=== PATIENT | male | born 1960 | race African-American/Black ===

== ENCOUNTER 2018-10-14 19:18 | Inpatient (IN) | payer MEDICARE, OTHER ==
--- NOTE | 2018-10-14 20:07 | ED Physician Chart ---
ED Chief Complaint/HPI - Patient Information Date Seen:: 10/14/18 Time Seen:: 19:30 Chief Complaint:: increased correction aggitation History of Present Illness:: several days Allergies:: Allergies Allergy/AdvReac Type Severity Reaction Status Date / Time No Known Allergies Allergy Verified 10/14/18 20:00 Vitals:: Vital Signs - 8 hr 10/14/18 19:20 Temp 98.4 F HR 78 RR 16 BP 138/88 O2 Sat % 99 Historian:: Medical Records Review:: Nurse's Note Reviewed, Transfer documents Reviewed, Patient unable to respond ED Review of Systems - Review of Systems General/Constitutional: No fever ED Past Medical History - Past Medical History Past Medical History: HTN, Other (parkinsons htn) Family Medical History - Family Member Mother History Unknown: Yes ED Physical Exam - Physical Examination General/Constitutional: Awake, No distress, Non-toxic appearing Head: Atraumatic Eyes: Lids, conjuctiva normal Skin: No ecchymosis ENMT: External ears, nose nl Neck: Nontender Respiratory: Nl effort/Exclusion Cardio Vascular: RRR, NL S1 S2 GI: No tenderness/rebounding/guarding Extremities: No tenderness or effusion Neuro/Psych: Normal motor strength (tremors 4/5) Misc: No paraspinal tenderness ED Assessment - Assessment General Assessment: aggitation acute with potential psychosocial overtones ED Septic Shock - . Is Septic Shock (SBP<90, OR Lactate>4 mmol\L) present?: No - <6hrs of presentation: Vital Signs: Vital Signs - 8 hr 10/14/18 19:20 Temp 98.4 F HR 78 RR 16 BP 138/88 O2 Sat % 99 ED Reassessment (Disposition) - Reassessment Reassessment Condition:: Unchanged - Patient Disposition Discharge/Transfer:: Acute Care w/in this hosp (need for psych eval with change or mod medicine)
[2018-10-14 20:34] LABS: % BASOPHILS 3.8 % (0.0-2.0); % EOSINOPHILS 0.6 % (0.0-5.0); % LYMPHOCYTES 12.7 % (20.0-50.0); % MONOCYTES 4.3 % (2.0-10.0); % NEUTROPHILS 78.6 % (40.0-80.0); BASOPHILE ABSOLUTE 0.2 Th/cumm (0-0.2); HEMATOCRIT 37.3 % (41.0-60); HEMOGLOBIN 12.8 gm/dL (12-16); LYMPHOCYTE ABSOLUTE 0.8 Th/cmm (1.5-3.0); MEAN CELL VOLUME 89.8 fl (80-99); MEAN CORPUSCULAR HEMOGLOBIN 30.8 pg (26.0-30.0); MEAN CORPUSCULAR HGB CONC 34.3 pg (28.0-36.0); MONOCYTE ABSOLUTE 0.3 Th/cmm (0.3-1.0); NEUTROPHILE ABSOLUTE 4.9 Th/cmm (1.8-8.0); PLATELET COUNT 128 Th/cmm (150-400); RED BLOOD COUNT 4.15 Mil/cmm (4.30-5.70); RED CELL DISTRIBUTION WIDTH 14.2 % (11.5-20.0); WHITE BLOOD COUNT 6.2 Th/cmm (4.8-10.8)
[2018-10-14 20:40] LABS: ALB/GLOB RATIO 1.3 (1.0-1.8); ALKALINE PHOSPHATASE 57 U/L (34-104); ANION GAP 11.7 (7.0-16.0); BUN - UREA NITROGEN 16 mg/dL (7-25); CALCIUM SERUM 9.2 mg/dL (8.6-10.3); CARBON DIOXIDE 24.7 mEq/L (21.0-31.0); CHLORIDE 102 mEq/L (98-107); CREATININE - SERUM 1.1 mg/dL (0.7-1.3); GFR AFRICAN-AMERICAN > 60.0 ml/min (>90); GFR NON AFRICAN-AMERICAN > 60.0 ml/min; GLUCOSE 76 mg/dL (70-105); POTASSIUM SERUM 4.4 mEq/L (3.5-5.1); SGOT 17 U/L (13-39); SGPT/ALT < 3 U/L (7-52); SODIUM SERUM 134 mEq/L (136-145); TOTAL PROTEIN,SERUM 7.1 gm/dL (6.0-8.3)
[2018-10-14 22:31] LABS: BILIRUBIN,TOTAL 1.1 mg/dL (0.3-1.0)
[2018-10-14 22:38] VITALS: BP 130/79
[2018-10-14] MEDS ORDERED: Magnesium Hydroxide (MOM) 30 mL UDC PO PRN (22:44)
[2018-10-14] MEDS ORDERED: Maalox 30 mL Cup PO PRN (22:44)
[2018-10-14] MEDS ORDERED: LEVODOPA PO SCH (23:00)
[2018-10-14] MEDS ORDERED: CARBIDOPA PO SCH (23:00)
[2018-10-15 07:50] LABS: CHOLESTEROL 95 mg/dL (<200); HDL -HIGH DENSITY LIPOPROTEIN 49 mg/dL (23-92); TRIGLYCERIDES 16 mg/dL (<150)
--- NOTE | 2018-10-15 11:10 | Psychiatric Evaluation ---
DATE OF SERVICE: 10/14/2018 IDENTIFYING INFORMATION: The patient is a 58-year-old black male. HISTORY OF PRESENT ILLNESS: The patient was sent because of agitation and psychosis. The patient was a very poor historian. He looked disheveled. He was dressed in shorts that were teared Unable to participate in meaningful conversation or make safe plan for self-care. He has been very agitated, irritable, unable to make safe plan for self-care. PAST PSYCHIATRIC HISTORY: Psychosis. No more information is obtainable from the patient. According to the ER notes, [facility] because of increasing agitation. ALLERGIES: The patient has no known drug allergy. MEDICATIONS: The patient has been on amantadine, Sinemet, lisinopril, Naprosyn, temazepam and he should be also on Restoril. FAMILY AND SOCIAL HISTORY: Unobtainable. The patient lives in a nursing facility. Unable to obtain information from the patient. MENTAL STATUS EXAMINATION: The patient is appropriately dressed, not very well groomed, who is dressed in shorts or tiered unable to make safe plan for self-care or participate in meaningful conversation. He is unpredictable, impulsive. He is demented. The patient is unable to tell me the date, where he is, why he is here. When asked about her age, he was whispering mumbling, unable to understand, unpredictable, impulsive, needing redirection, milieu safe plan for self-care, gravely disabled. IMPRESSION: Dementia with behavior disturbances. History of psychosis. MEDICAL DIAGNOSES: As per medical doctor. Plan will be started on Seroquel 25 mg twice a day. We will do group therapy daily at bedtime. We will do group therapy, milieu therapy, and individual therapy. ESTIMATED LENGTH OF STAY: 3-7 days. DISCHARGE CRITERIA: Decreasing psychosis, agitation after discharge, outpatient treatment. JOB# [id number] [facility]
--- NOTE | 2018-10-15 12:25 | History & Physical ---
ADMIT DATE: 10/15/2018 CHIEF COMPLAINT: Agitation. HISTORY OF PRESENT ILLNESS: A 58-year-old male who is a [facility] who has been admitted to the Geropsych Unit due to increase of agitation. PAST MEDICAL HISTORY: Hypertension, Parkinson's. PAST SURGICAL HISTORY: Unknown. ALLERGIES: No drug allergies. HOME MEDICATIONS: See medication list. REVIEW OF SYSTEMS: Unable to obtain, the patient is very confused. PHYSICAL EXAMINATION: GENERAL: The patient appears older than stated age. No apparent distress. VITAL SIGNS: Temperature 98.4, heart rate 70, blood pressure 130/80, respirations 16, O2 of 99%. HEENT: Head; normocephalic, atraumatic. NECK: Supple. No mass. LUNGS: Clear bilaterally. HEART: Regular rate and rhythm. ABDOMEN: Soft, nontender. LABORATORY DATA: WBC 6.2, H and H 12.8 and 37.3, platelet of 120. Sodium 134, potassium 4.4, chloride 102, BUN 16 and creatinine 1.1. ASSESSMENT: Hypertension, Parkinson's, agitation. PLAN: We will continue the patient's home medications. Fall precautions will be initiated. We will continue to monitor this patient. JOB# [id number]
[2018-10-16 06:07] LABS: A1C 5.3 % (4.8-5.6)
[2018-10-16] MEDS: Eucerin Cream 16 oz Jar TP SCH ×2 (08:45→17:37)
--- NOTE | 2018-10-16 11:48 | Internal Medicine Prog Note ---
Internal Medicine Subjective - Subjective Service Date: 10/16/18 Patient seen and examined:: with staff Patient is:: awake, verbal, agitated, confused Patient Complaints of:: other (Irritable, Agitated.) Per staff patient has:: no adverse event, no episodes of fall Internal Medicine Objective - Results Result Diagrams: 10/14/18 20:15 10/14/18 20:15 Recent Labs: Laboratory Last Values WBC 6.2 Th/cmm (4.8-10.8) 10/14/18 20:15 RBC 4.15 Mil/cmm (4.30-5.70) L 10/14/18 20:15 Hgb 12.8 gm/dL (12-16) 10/14/18 20:15 Hct 37.3 % (41.0-60) L 10/14/18 20:15 MCV 89.8 fl (80-99) 10/14/18 20:15 MCH 30.8 pg (26.0-30.0) H 10/14/18 20:15 MCHC Differential 34.3 pg (28.0-36.0) 10/14/18 20:15 RDW 14.2 % (11.5-20.0) 10/14/18 20:15 Plt Count 128 Th/cmm (150-400) L 10/14/18 20:15 MPV 10.5 fl 10/14/18 20:15 Neutrophils % 78.6 % (40.0-80.0) 10/14/18 20:15 Lymphocytes % 12.7 % (20.0-50.0) L 10/14/18 20:15 Monocytes % 4.3 % (2.0-10.0) 10/14/18 20:15 Eosinophils % 0.6 % (0.0-5.0) 10/14/18 20:15 Basophils % 3.8 % (0.0-2.0) H 10/14/18 20:15 Sodium 134 mEq/L (136-145) L 10/14/18 20:15 Potassium 4.4 mEq/L (3.5-5.1) 10/14/18 20:15 Chloride 102 mEq/L (98-107) 10/14/18 20:15 Carbon Dioxide 24.7 mEq/L (21.0-31.0) 10/14/18 20:15 Anion Gap 11.7 (7.0-16.0) 10/14/18 20:15 BUN 16 mg/dL (7-25) 10/14/18 20:15 Creatinine 1.1 mg/dL (0.7-1.3) 10/14/18 20:15 Est GFR ( Amer) > 60.0 ml/min (>90) 10/14/18 20:15 Est GFR (Non-Af Amer) > 60.0 ml/min 10/14/18 20:15 BUN/Creatinine Ratio 14.5 10/14/18 20:15 Glucose 76 mg/dL (70-105) 10/14/18 20:15 Calcium 9.2 mg/dL (8.6-10.3) 10/14/18 20:15 Total Bilirubin 1.1 mg/dL (0.3-1.0) H 10/14/18 20:15 AST 17 U/L (13-39) 10/14/18 20:15 ALT < 3 U/L (7-52) L 10/14/18 20:15 Alkaline Phosphatase 57 U/L (34-104) 10/14/18 20:15 Total Protein 7.1 gm/dL (6.0-8.3) 10/14/18 20:15 Albumin 4.0 gm/dL (4.2-5.5) L 10/14/18 20:15 Globulin 3.1 gm/dL 10/14/18 20:15 Albumin/Globulin Ratio 1.3 (1.0-1.8) 10/14/18 20:15 Triglycerides 16 mg/dL (<150) 10/14/18 20:15 Cholesterol 95 mg/dL (<200) 10/14/18 20:15 LDL Cholesterol Direct 40 mg/dL (75-193) L 10/14/18 20:15 HDL Cholesterol 49 mg/dL (23-92) 10/14/18 20:15 - Physical Exam Vitals and I&O: Vital Signs Temp 98.2 F 10/16/18 05:53 Pulse 86 10/16/18 05:53 Resp 19 10/16/18 05:53 BP 100/58 10/16/18 05:53 Pulse Ox 97 10/16/18 05:53 Intake & Output 0910/16/18 10/16/18 18:59 06:59 18:59 Intake Total 1350 240 Balance 1350 240 Intake: Oral 1350 240 Other: # Voids 2 # Bowel Movements 0 Active Medications: Current Medications Acetaminophen (Tylenol) 650 mg PO Q4HR PRN PRN Reason: Mild Pain / Temp above 100 Stop: 12/13/18 22:43 Al Hydrox/Mg Hydrox/Simethicone (Maalox) 30 ml PO Q4HR PRN PRN Reason: GI DISTRESS Stop: 12/13/18 22:43 Amantadine HCl (Symmetrel) 100 mg PO BID [facility] Stop: 12/14/18 08:59 Last Admin: 10/16/18 08:46 Dose: 100 mg Carbidopa/Levodopa (Sinemet 25 Mg-250 Mg) 2 tab PO QID [facility] Stop: 12/14/18 08:59 Last Admin: 10/16/18 08:45 Dose: 2 tab Lisinopril (Zestril) 20 mg PO DAILY [facility] Stop: 12/14/18 08:59 Last Admin: 10/16/18 08:35 Dose: Not Given Lorazepam (Ativan) 0.5 mg PO Q4HR PRN; Protocol PRN Reason: Anxiety Stop: 11/13/18 22:43 Last Admin: 10/15/18 04:48 Dose: 0.5 mg Magnesium Hydroxide (Milk Of Magnesia) 30 ml PO HS PRN PRN Reason: Constipation Multi-Ingredient Cream (Eucerin Cream) 1 appl TP BID [facility] Stop: 12/14/18 16:59 Last Admin: 10/16/18 08:45 Dose: 1 appl Naproxen (Naprosyn) 500 mg PO BID [facility] Stop: 12/14/18 08:59 Last Admin: 10/16/18 08:46 Dose: 500 mg Quetiapine Fumarate (Seroquel) 25 mg PO DAILY [facility]; Protocol Stop: 12/15/18 08:59 Last Admin: 10/16/18 08:46 Dose: 25 mg Temazepam (Restoril) 15 mg PO HS [facility]; Protocol Stop: 12/14/18 20:59 Last Admin: 10/15/18 21:12 Dose: 15 mg Physical Exam: Patient is aggressive and irritable. General: other (Agitated.) HEENT: NC/AT Neck: Supple, No JVD Lungs: CTAB Cardiovascular: RRR, Normal S1 Abdomen: soft, non-tender Extremities: clear Neurological: alert Internal Medicine Assmt/Plan - Assessment Assessment: Increased Agitated. Parkinson's disease. Hypertension. - Plan Plan: Continuation of care. Monitor Labs. Continue present meds as directed. Monitor vitals, continue B/P meds as directed. Monitor Diet/Nutritional support. Psych management per Psych. Pain Management. Physical therapy/Occupational therapy prn. Safety precaution. Supportive care. Fall precaution, frequent nursing rounds, and as needed restraints to prevent fall. Continue collaborating with consulting specialists, case management and nursing team. Will Monitor patient and continue present care management. Nutritional Asmnt/Malnutr-PDOC - Dietary Evaluation Malnutrition Findings (Please click <Entered> for more info): see orders.
--- NOTE | 2018-10-16 20:11 | Progress Notes ---
DATE: 10/16/[address] Kennedy. Case was discussed with staff of the patient, reviewed records. The patient today was able to get more information. He was alert. He was whispering. He knew this is October, maybe the or the 2018. He did not know where he is. He was unable to care. Does not know why he is in this facility. He continues to be unpredictable, impulsive, psychotic, unable to make safe plan for self-care. The patient also with history of hypertension, Parkinson's disease. He has no known drug allergies. He tolerated the Seroquel with no side effects, no sedation, no nausea, no extrapyramidal symptoms. I chose Seroquel simply because of his Parkinson's that has the lowest tendency to "Parkinson's" after Clozaril; however, I felt Clozaril is too much to hit from the first trial, I am not sure if he was on it before. The patient's lab work showed that he has low red cells, but normal hemoglobin. He has a low platelet count, low lymphocyte, high basophil. Chemistry panel with low sodium, high total bilirubin, and low albumin. Lipid profile with low LDL cholesterol. The rest within normal range. I will be deferring this to the medical doctor. We will continue outpatient group therapy, milieu therapy, adjust medication as needed. JOB# [id number]
[2018-10-17] MEDS: Eucerin Cream 16 oz Jar TP SCH ×2 (08:15→18:01)
--- NOTE | 2018-10-17 20:44 | Progress Notes ---
DATE: 10/17/2018 SUBJECTIVE: The patient was seen in his room. The patient is awake, alert, appears to be guarded, disheveled, easily gets frustrated with poor impulse control. Otherwise, the patient appears to be in no distress. OBJECTIVE: VITAL SIGNS: Temperature 96.8, heart rate 68, respiration 18, blood pressure 117/80, 97% on room air. HEENT: Head is atraumatic and normocephalic. Eyes: Bilateral conjunctivae are clear. Bilateral pupils are equally round and reactive. NECK: Supple. No JVD. CARDIOVASCULAR: S1 and S2, without murmur. PULMONARY: Clear to auscultation. GASTROINTESTINAL: Soft and nontender without guarding. Positive bowel sounds. MUSCULOSKELETAL: No clubbing. No cyanosis noted. ASSESSMENT: 1. Dementia. 2. History of psychosis. 3. Hypertension. 4. Parkinson's. PLAN: We will keep the patient in inpatient Psychiatric Unit. We will follow up with a psychiatrist to monitor the patient's condition and behavior. Treatment plans were discussed with the patient's nurse. Treatment plans were discussed with Dr. Thomas. JOB# [id number]
--- NOTE | 2018-10-17 20:48 | Progress Notes ---
DATE: 10/17/2018 Case was discussed with staff of the patient, reviewed records. The patient continues to have poor insight. He is staying in bed, in general, he is more oriented. He is not acting out. He seems to have shown progress. No side effects with the medication, no sedation, no nausea, no extrapyramidal symptoms. Continues to have episodes of agitation, irritability, and needing redirection. We will continue to work with the patient in group therapy, milieu therapy, and adjust medication as needed. JOB# [id number]
[2018-10-18] MEDS: Eucerin Cream 16 oz Jar TP SCH ×2 (09:39→17:00)
--- NOTE | 2018-10-18 09:43 | Internal Medicine Prog Note ---
Internal Medicine Subjective - Subjective Patient is:: awake, verbal, agitated, confused Patient Complaints of:: other (Irritable, Agitated.) Per staff patient has:: no adverse event, no episodes of fall Internal Medicine Objective - Results Result Diagrams: 10/14/18 20:15 10/14/18 20:15 Recent Labs: Laboratory Last Values WBC 6.2 Th/cmm (4.8-10.8) 10/14/18 20:15 RBC 4.15 Mil/cmm (4.30-5.70) L 10/14/18 20:15 Hgb 12.8 gm/dL (12-16) 10/14/18 20:15 Hct 37.3 % (41.0-60) L 10/14/18 20:15 MCV 89.8 fl (80-99) 10/14/18 20:15 MCH 30.8 pg (26.0-30.0) H 10/14/18 20:15 MCHC Differential 34.3 pg (28.0-36.0) 10/14/18 20:15 RDW 14.2 % (11.5-20.0) 10/14/18 20:15 Plt Count 128 Th/cmm (150-400) L 10/14/18 20:15 MPV 10.5 fl 10/14/18 20:15 Neutrophils % 78.6 % (40.0-80.0) 10/14/18 20:15 Lymphocytes % 12.7 % (20.0-50.0) L 10/14/18 20:15 Monocytes % 4.3 % (2.0-10.0) 10/14/18 20:15 Eosinophils % 0.6 % (0.0-5.0) 10/14/18 20:15 Basophils % 3.8 % (0.0-2.0) H 10/14/18 20:15 Sodium 134 mEq/L (136-145) L 10/14/18 20:15 Potassium 4.4 mEq/L (3.5-5.1) 10/14/18 20:15 Chloride 102 mEq/L (98-107) 10/14/18 20:15 Carbon Dioxide 24.7 mEq/L (21.0-31.0) 10/14/18 20:15 Anion Gap 11.7 (7.0-16.0) 10/14/18 20:15 BUN 16 mg/dL (7-25) 10/14/18 20:15 Creatinine 1.1 mg/dL (0.7-1.3) 10/14/18 20:15 Est GFR ( Amer) > 60.0 ml/min (>90) 10/14/18 20:15 Est GFR (Non-Af Amer) > 60.0 ml/min 10/14/18 20:15 BUN/Creatinine Ratio 14.5 10/14/18 20:15 Glucose 76 mg/dL (70-105) 10/14/18 20:15 Calcium 9.2 mg/dL (8.6-10.3) 10/14/18 20:15 Total Bilirubin 1.1 mg/dL (0.3-1.0) H 10/14/18 20:15 AST 17 U/L (13-39) 10/14/18 20:15 ALT < 3 U/L (7-52) L 10/14/18 20:15 Alkaline Phosphatase 57 U/L (34-104) 10/14/18 20:15 Total Protein 7.1 gm/dL (6.0-8.3) 10/14/18 20:15 Albumin 4.0 gm/dL (4.2-5.5) L 10/14/18 20:15 Globulin 3.1 gm/dL 10/14/18 20:15 Albumin/Globulin Ratio 1.3 (1.0-1.8) 10/14/18 20:15 Triglycerides 16 mg/dL (<150) 10/14/18 20:15 Cholesterol 95 mg/dL (<200) 10/14/18 20:15 LDL Cholesterol Direct 40 mg/dL (75-193) L 10/14/18 20:15 HDL Cholesterol 49 mg/dL (23-92) 10/14/18 20:15 - Physical Exam Vitals and I&O: Vital Signs Temp 98.3 F 10/18/18 06:00 Pulse 83 10/18/18 06:00 Resp 20 10/18/18 06:00 BP 136/100 10/18/18 06:00 Pulse Ox 98 10/18/18 06:00 Intake & Output 10/17/18 10/18/18 10/18/18 18:59 06:59 18:59 Intake Total 2200 Balance 2200 Intake: Oral 2200 Other: # Voids 4 # Bowel Movements 1 Active Medications: Current Medications Acetaminophen (Tylenol) 650 mg PO Q4HR PRN PRN Reason: Mild Pain / Temp above 100 Stop: 12/13/18 22:43 Al Hydrox/Mg Hydrox/Simethicone (Maalox) 30 ml PO Q4HR PRN PRN Reason: GI DISTRESS Stop: 12/13/18 22:43 Amantadine HCl (Symmetrel) 100 mg PO BID [facility] Stop: 12/14/18 08:59 Last Admin: 10/18/18 09:39 Dose: 100 mg Carbidopa/Levodopa (Sinemet 25 Mg-250 Mg) 2 tab PO QID [facility] Stop: 12/14/18 08:59 Last Admin: 10/18/18 09:39 Dose: 2 tab Lisinopril (Zestril) 20 mg PO DAILY [facility] Stop: 12/14/18 08:59 Last Admin: 10/17/18 08:16 Dose: 20 mg Lorazepam (Ativan) 0.5 mg PO Q4HR PRN; Protocol PRN Reason: Anxiety Stop: 11/13/18 22:43 Last Admin: 10/15/18 04:48 Dose: 0.5 mg Magnesium Hydroxide (Milk Of Magnesia) 30 ml PO HS PRN PRN Reason: Constipation Multi-Ingredient Cream (Eucerin Cream) 1 appl TP BID [facility] Stop: 12/14/18 16:59 Last Admin: 10/18/18 09:39 Dose: 1 appl Naproxen (Naprosyn) 500 mg PO BID [facility] Stop: 12/14/18 08:59 Last Admin: 10/18/18 09:39 Dose: 500 mg Quetiapine Fumarate (Seroquel) 25 mg PO DAILY [facility]; Protocol Stop: 12/15/18 08:59 Last Admin: 10/18/18 09:40 Dose: 25 mg Temazepam (Restoril) 15 mg PO HS [facility]; Protocol Stop: 12/14/18 20:59 Last Admin: 10/17/18 21:02 Dose: 15 mg General: other (Agitated.) HEENT: NC/AT Neck: Supple, No JVD Lungs: CTAB Cardiovascular: RRR, Normal S1, Normal S2 Abdomen: soft, non-tender, non-distended Extremities: clear Neurological: alert Internal Medicine Assmt/Plan - Assessment Assessment: Agitation Hx of Psychosis Parkinson's Disease HTN - Plan Plan: Continue current treatment plan. Monitor Labs.Continue current medications Continue to monitor VS Monitor Diet/Nutritional support. Psych management per Psychiatry. Pain Management. Wound Care consult - pending - ordered yesterday PT/OT prn Safety precaution, Fall precaution, frequent nursing round. Supportive care. Continue collaborating with consulting specialists, case management and nursing team. Nutritional Asmnt/Malnutr-PDOC - Dietary Evaluation Malnutrition Findings (Please click <Entered> for more info): Nutritional Asmnt/Malnutrition Start: 10/16/18 14: 39 Text: Status: Complete Freq: Protocol: Document 10/16/18 14:39 SUSIE (Rec: 10/16/18 14:43 SUSIE [email or web address]) Nutritional Asmnt/Malnutrition Patient General Information Nutritional Screening Moderate Risk Consult Diagnosis Psychosis Pertinent Medical Hx/Surgical Hx HTN, Parkinsons disease Subjective Information IA/Consult: RT medial bicep burn wound Pt is a 58-year-old male from skilled nursing admitted on 10/14 c /o agitation. Per Meal/ Nutrition Activity Record, Pt PO intake 100% meals since admission. Per wound care note (10/15), wound on RT medical bicep, Scar tissues and dark discolored skin on LT upper back and bilateral lower extremity noted. Per RN [place], Pt ate 75-100% breakfast and lunch today. Added Avi BID to support wound healing. Provided 6 packs of Avi to RN. Pt was downgraded to low risk d/t tolerance to current diet order and meeting nutritional needs. Will continue to monitor on wound healing progress. HT: 61 WT: 167 LB (75.91 kg) BMI: 22.03 (Normal) GI: Soft BM: Not noted I/O: 1590/Not Noted Skin: WNL, Intact Wound: wound on RT medial bicep Sree: 20 Diet Order: NA2GM Estimated Energy Needs: ( Pressure Ulcers Stage III-IV Small/Undraining, CBW) 9721-4665 kcals (28-33 kcals/ kg) 91-114 g Pro (1.2-1.5 g/kg) 7775-3733 ml (30-40 ml/kg) Pt is eating 100% of meals Per Meal/Nutrition Activity Record. Dietary is currently providing an estimated 2617 kcals and 105 gm Pro to meet 100% kcal and 100% Pro needs. Current Diet Order/ Nutrition Support NA2GM Pertinent Medications Maalox (PRN), MOM (PRN) Pertinent Labs 10/14: Hgb/Hct 12.8/37.3, Na 134 , Alb 4.0 Nutritional Hx/Data Height 6 ft 1 in Height (Calculated Centimeters) 185.4 Current Weight (lbs) 167 lb Weight (Calculated Kilograms) 75.7 Weight (Calculated Grams) 17995.9 [place] Body Weight 79.9 kg % [place] Body Weight 95 Body Mass Index (BMI) 22.0 Weight Status Approriate GI Symptoms GI Symptoms None Last BM Not noted Skin Integrity/Comment: Skin: WNL, Intact Wound: wound on RT medial bicep Sree: 20 Current %PO Good (75-100%) Estimated Nutritional Goals BEE in Kcals: Using Current wt Calories/Kcals/Kg 28-33 Kcals Calculated 9999-3073 Protein: Using Current wt Protein g/k.2-1.5 Protein Calculated 91-114 Fluid: ml 9630-4862 ml (30-40 ml/kg) Nutritional Problem 1. Problem Problem Increased calories and protein needs Etiology r/t wound healing Signs/Symptoms: aeb wound on RT medial bicep Malnutrition Related to Morbid Obesity Malnutrition related to morbid obesity No Intervention/Recommendation Comments 1.Continue with NA2GM diet as ordered. 2.Added Avi BID to support wound healing (completed). Expected Outcomes/Goals Expected Outcomes/Goals 1.PO intake to continue to meet >75% of nutritional needs . 2.Monitor PO intake, wt, nutrition related labs, and skin integrity to trend WNL. 3.F/U as low risk in 7 days,
--- NOTE | 2018-10-18 22:56 | Progress Notes ---
DATE: 10/18/2018 SUBJECTIVE: Case was discussed with staff of the patient, reviewed records. The patient continues to isolate in bed, continues to be confused, unpredictable, impulsive, though he is less confused than he was when he first came in here. He looked a little bit better groomed. He continues to have episodes of agitation, irritability, and needing redirection. He tolerated the Seroquel with no side effects, no sedation, no nausea, and no extrapyramidal symptoms. We will continue to work with the patient in group therapy, milieu therapy, and adjust the medications as needed. JOB# [id number]
[2018-10-19] MEDS: Eucerin Cream 16 oz Jar TP SCH (08:57)
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
--- NOTE | 2018-10-20 04:58 | Progress Notes ---
DATE: 10/19/2018 SUBJECTIVE: The patient in the hospital, mostly isolative, confused, impulsive, unpredictable. Per Dr. Georges, the patient seems to be calmer. He is still pretty ruminative, states he is on hospice, continues to ask me to call the hospice over and over again. Ongoing concerns about agitation, acting out behaviors, ruminations, perseverative. Fair sleep, fair appetite, mostly keeps to himself whenever approached, asks for medication and hospice. ASSESSMENT: The patient remains symptomatic, ongoing confusional state. We will continue to monitor. It is unclear if he is on hospice or not. Difficult to follow his thought processes. JOB# [id number]
[2018-10-20] MEDS: Eucerin Cream 16 oz Jar TP SCH ×2 (10:00→17:34)
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
--- NOTE | 2018-10-20 23:59 | Progress Notes ---
DATE: 10/20/[address] Kennedy. Case was discussed with staff of the patient, reviewed records. The patient is reportedly a bit calmer. The patient is on hospice. Continues to and over again. He continues to have episodes of agitation, ruminating, and preservative. He sleeps well, eats well. He stays to himself, staying in the room, tolerated Seroquel with no side effects, no sedation, no nausea, or no extrapyramidal symptoms and still unclear if he is to be on hospice or not. We will continue outpatient group therapy, milieu therapy, and adjust medication as needed. JOB# [id number]
[2018-10-21] MEDS: Eucerin Cream 16 oz Jar TP SCH ×2 (08:05→16:35)
--- NOTE | 2018-10-21 13:16 | Progress Notes ---
DATE: Case was discussed with staff of the patient, reviewed records. The patient continues to be confused, unpredictable, impulsive with episodes of agitation and irritability rumination He is sleeping better, eating better. I will be increasing his Seroquel to 37.5 mg at bedtime. No side effects with the medication, no sedation, no nausea, no extrapyramidal symptoms. We will continue outpatient group therapy, milieu therapy, adjust medication as needed. JOB# [id number] [email or web address]
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
[2018-10-22] MEDS: Eucerin Cream 16 oz Jar TP SCH ×2 (09:26→17:53)
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
--- NOTE | 2018-10-22 15:20 | Progress Notes ---
DATE: 10/22/2018 Case was discussed with staff of the patient, reviewed records. The patient continues to be impulsive, unpredictable, confused, unable to make safe plan for self-care. He is only a bit calmer. He is able to carry on a conversation better, though he does not make sense sometimes. No side effects with the medication, no sedation, no nausea and no extrapyramidal symptoms. He tolerated increase in Seroquel yesterday. We will continue the patient in group therapy, milieu therapy, adjust medication as needed. JOB# [id number]
[2018-10-23] MEDS: Eucerin Cream 16 oz Jar TP SCH ×2 (12:45→16:26)
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
--- NOTE | 2018-10-23 22:50 | Progress Notes ---
DATE: 10/23/2018 Case was discussed with staff of the patient, reviewed records. The patient continues to be confused, continues to be unable to make reasonable conversation, though he is able to express himself a little bit better, continues to be unable to make safe plan for self-care. He is sleeping better and eating better. No side effects with the medication, no sedation, no nausea, no extrapyramidal symptoms. He is tolerating increase in Seroquel yesterday with no side effects. We will continue outpatient group therapy, milieu therapy, and adjust medications as needed. JOB# [id number]
[2018-10-24] MEDS: Eucerin Cream 16 oz Jar TP SCH ×2 (11:00→16:45)
--- NOTE | 2018-10-24 21:43 | Progress Notes ---
DATE: 10/24/2018 The patient is currently in the hospital, sent due to agitation, escalation of behaviors. The patient is pretty calm right now and states that he wants to go back to his board and care. Noted to be fairly impulsive, unpredictable, although calm and speaking with the nurses. He really does not know why he is here at all. Dr. Georges saw him yesterday and noted that he was presenting with some signs of confusion. Fair sleep, fair appetite, although he wakes up pretty early in the morning. Per nursing staff, some confusion noted. He does not know why he is in the hospital. He said he does not know the year; seems to be improving. We will continue to monitor. Per nursing staff, still with some episodes of being easily agitated and withdrawn. JOB# [id number]
--- NOTE | 2018-10-24 21:48 | Progress Notes ---
DATE: 10/24/2018 SUBJECTIVE: The patient was seen in his room. The patient is awake. The patient appears to be guarded, easily gets frustrated with impulsive behavior. Otherwise, the patient appears to be in no acute distress. OBJECTIVE: VITAL SIGNS: Temperature 97.9, heart rate 71, blood pressure 136/96, respirations 20, and 98% on room air. HEENT: Head is atraumatic and normocephalic. Eyes: Bilateral conjunctivae are clear. Bilateral pupils are equally round and reactive. NECK: Supple. No JVD. CARDIOVASCULAR: S1 and S2, without murmur. PULMONARY: Clear to auscultation. GASTROINTESTINAL: Soft and nontender without guarding. Positive bowel sounds. MUSCULOSKELETAL: No clubbing. No cyanosis noted. ASSESSMENT: 1. Dementia. 2. History of psychosis. 3. Parkinson's disease. 4. Hypertension. PLAN: We will continue to keep the patient inpatient at the [facility] and follow up with the psychiatrist to monitor the patient's condition and behavior. Put the patient on fall precaution. Treatment plans were discussed with the patient's nurse. Treatment plans were discussed with Dr. Thomas. JOB# [id number]
--- NOTE | 2018-10-25 08:08 | Progress Notes ---
DATE: 10/25/2018 SUBJECTIVE: The patient is seen to review, discussed with staff. The patient is poorly oriented, mostly withdrawn, right now depressed appearing. Apparently, his 6 years ago. Some confusion noted. Otherwise, this morning he is generally calm, fairly cooperative, seems to be more engaged, interactive, talking with others. No distress right now. The patient agitation, no aggressive behaviors, irritation. Medications were noted. ASSESSMENT: The patient seems to be showing some signs of improvement, generally calm, more cooperative, redirectable, noted depression. PLAN: We will continue to monitor. JOB# [id number]
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
[2018-10-25] MEDS: Eucerin Cream 16 oz Jar TP SCH ×2 (09:45→18:00)
[2018-10-26] MEDS: Eucerin Cream 16 oz Jar TP SCH ×2 (08:33→16:09)
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
[2018-10-27] MEDS: Eucerin Cream 16 oz Jar TP SCH ×2 (08:34→16:45)
--- NOTE | 2018-10-27 09:35 | Progress Notes ---
DATE: SUBJECTIVE: Chart reviewed and the patient interviewed. Also discussed the patient's condition with the staff and reviewed records and labs. The patient is still having episodes of agitation and irritability, but generally the patient is cooperative. The patient also is still suspicious and is still restless. He also still wants to be left alone most of the time and he is still anxious and is still confused. Otherwise, the patient is interacting minimally with others. Gait is steady and vital signs are stable and no abnormal labs. TREATMENT PLAN: Continue monitoring his behavior and his condition closely. The patient also continues to take Seroquel and we will increase the dose to 50 mg and we will give it to him at bedtime and we will continue to follow up. [facility]# [id number]
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
--- NOTE | 2018-10-27 20:06 | Progress Notes ---
DATE: ____ "bored." The patient is complaining of being bored, but he is less agitated. He also is more forgetful and seems to be confused at times. The patient also is slightly more cooperative with his treatment. He also is still suspicious and slightly paranoid. Otherwise, the patient is compliant with taking Seroquel ____, continue Seroquel 37.5 mg daily. Also continue to work on his poor impulse control. The patient is also saying that he wants to go to live with his sister in [place], but no information about her and rn case mgr is trying to get him into a rehab place. At the same time, we will continue close observation and we will continue to followup. JOB# [id number]
--- NOTE | 2018-10-28 07:55 | Progress Notes ---
DATE: SUBJECTIVE: Chart reviewed and the patient interviewed. Also discussed the patient's condition with the staff and reviewed records and labs. The patient continued to be severely depressed. The patient also is still anxious and is still in a depressed mood and he is still easily agitated. Also, it is still slightly easier to redirect him and no major behavioral issues at this time. OBJECTIVE: Gait is steady. Vital signs are stable. ASSESSMENT: The patient is still depressed and also he needs placement. TREATMENT PLAN: Continue current medications. Also, continue to work with insurance case manager in regard to placement issue and discharge plans. JOB# [id number]
[2018-10-28] MEDS: Eucerin Cream 16 oz Jar TP SCH ×2 (08:15→16:15)
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
[2018-10-29] MEDS: Eucerin Cream 16 oz Jar TP SCH ×2 (09:09→17:07)
--- NOTE | 2018-10-29 10:45 | Progress Notes ---
DATE: 10/29/2018 SUBJECTIVE: Chart reviewed and the patient interviewed. Also discussed the patient's condition with the staff and reviewed records and labs. The patient is still restless and anxious and is still in irritable and depressed mood. The patient also is still easily agitated and still needs lots of redirections. The patient also is at times yelling at staff. Otherwise, the patient is cooperative in regard to taking his medications and the patient continued to take Seroquel in a dose of 50 mg at bedtime with no side effects. ASSESSMENT: The patient is still irritable and is still agitated. TREATMENT PLAN: Continue monitoring his behavior and his condition closely. Also, continue adjusting psychotropic medications and followup. [facility]# [id number]
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
[2018-10-30] MEDS: Eucerin Cream 16 oz Jar TP SCH ×2 (08:52→17:26)
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
--- NOTE | 2018-10-30 20:36 | Progress Notes ---
DATE: SUBJECTIVE: Chart reviewed and the patient interviewed. Also discussed the patient's condition with the staff and reviewed records and labs. The patient still has episodes of anger and irritability, was yelling and screaming. The patient also is still able to verbalize his needs, but sometimes angry in inappropriate way. He also is still unsure about discharge plans and case specialist was not giving any information about his placement and discharge places. He still needs redirections and still needs close monitoring. Otherwise, the patient is compliant with taking Seroquel with no side effects of Seroquel. ASSESSMENT: The patient is still having episodes of anger and is still not clear as far as of discharge plans. TREATMENT PLAN: Continue Seroquel same dose. Continue adjusting medications and monitor behavior and work on discharge plans. JOB# [id number]
[2018-10-31] MEDS: Eucerin Cream 16 oz Jar TP SCH ×2 (08:29→16:46)
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
--- NOTE | 2018-11-01 00:26 | Progress Notes ---
DATE: SUBJECTIVE: Chart reviewed and the patient interviewed. Also discussed the patient's condition with the staff and reviewed records and labs. The patient is still anxious and has a lot of questions about medications and still concerned about medicine. The patient also still tends to isolate himself and is still depressed and withdrawn. He continues to take Seroquel in a dose of 50 mg every day with no side effects. He is still having episodes of yelling and screaming, but less than before. ASSESSMENT: The patient is still depressed and agitated. TREATMENT PLAN: Continue to monitor behavior and condition closely. Also, continue adjusting psychotropic medications and also working on discharge plans. JOB# [id number]
[2018-11-01] MEDS: Eucerin Cream 16 oz Jar TP SCH ×2 (08:47→17:00)
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
--- NOTE | 2018-11-02 07:23 | Discharge Summary ---
DATE OF DISCHARGE: 11/02/2018 DATE OF DISCHARGE: 11/02/2018 PATIENT'S AGE: 58. SEX: Male. PHYSICIAN: Ishna Kennedy M.D., M.P.H. FINAL DIAGNOSES: PRIMARY DIAGNOSIS: Schizoaffective disorder, depressed episode, severe, with psychotic features. MEDICAL DIAGNOSIS: Hypertension. REASON FOR HOSPITALIZATION: The patient was admitted to the hospital because of increased agitation and also hallucinations and depression. HOSPITAL COURSE: The patient was anxious and depressed. The patient also was guarded and withdrawn. He interacted minimally with others. The patient was started on Seroquel in a dose of 50 mg at bedtime that helped the patient's depression. The patient also was complaining of slight weakness. The patient was monitored closely for his physical issues. The patient had no major medical problems while in the hospital. PHYSICAL EXAMINATION: The patient showed that the patient has hypertension and Parkinson's disease. AFTER DISCHARGE PLANS: The patient discharged from the hospital and went to [facility] for continuation of his treatment and rehabilitation. EXPECTED OUTCOME AFTER DISCHARGE: Fair if the patient continued to take his psychotropic medications and follow up with discharge plans. [facility]# [id number]
[2018-11-02] MEDS: Eucerin Cream 16 oz Jar TP SCH (08:33)
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
--- NOTE | 2018-11-02 14:18 | Progress Notes ---
DATE: 11/01/2018 SUBJECTIVE: Chart reviewed and the patient interviewed. Also discussed the patient's condition with the staff and reviewed records and labs. The patient is calmer and he is less irritable and less agitated. The patient also is still isolating himself and interacting minimally with others. It is rather easier to follow directions. The patient also still have questions about his medications, about compliance and taking it. ASSESSMENT: The patient is still depressed and is still anxious. TREATMENT PLAN: Continue Seroquel 50 mg at bedtime. Also, continue adjusting medications and working on his discharge plans and is still not clear about where the patient is going to live after his discharge. JOB# [id number]
== END 2018-11-02 16:30 | DRG 885 ==
LOC: ER 19:18 → GERO2 21:14 → GERO 21:55
PROVIDERS: ADMIT Psychiatry & Neurology Psychiatry; ATTEND Psychiatry & Neurology Psychiatry
DX: F25.1 Schizoaffective disorder, depressive type (principal); F02.81 Dementia in other diseases classified elsewhere, unspecified severity, with behavioral disturbance; F32.2 Major depressive disorder, single episode, severe without psychotic features; G20 Parkinson's disease; I10 Essential (primary) hypertension
CPT/HCPCS: 36415-UA; 80053-TC; 80061-TC; 83036-90; 85025-TC; 90899; G0410; Z7610